=== PATIENT | female | born 1975 | race Two or more races ===

== ENCOUNTER 2022-09-18 11:16 | Emergency (ER) | payer OTHER ==
[~2022-09-18] VITALS: Ht 170.2 cm; Wt 81.6 kg
[~2022-09-18 11:16] MED LIST: BENADRYL50 MG; N; TORADOL10 MG PO; TRAMADOL HCL50 MG
== END 2022-09-18 14:56 | disposition home or self-care (01) ==
LOC: ER 11:16
DX: R10.9 Unspecified abdominal pain (principal); N80.8 Other endometriosis; Z91.041 Radiographic dye allergy status; J45.909 Unspecified asthma, uncomplicated; R31.9 Hematuria, unspecified